=== PATIENT | female | born 1980 | race Caucasian/White ===

== ENCOUNTER 2025-02-18 06:01 | Emergency (ER) | payer BC ==
[2025-02-18 06:13] VITALS: BP 137/90; PULSE 95; RESP 18; TEMP 98.1; BMI 29.5
[2025-02-18] MEDS ORDERED: ONDANSETRON 4 MG/2 ML VIAL ONE (06:23)
[2025-02-18] MEDS: ONDANSETRON 4 MG/2 ML VIAL IVPB ONE (06:46)
[2025-02-18] MEDS: SODIUM CHLORIDE 1,000 ML IV ONE (06:46)
[2025-02-18] MEDS: SODIUM CHLORIDE 1,000 ML IV SCH (06:46)
[2025-02-18 08:32] LABS: ABSOLUTE IMMATURE GRANULOCYTES 0.02 x10^3/uL (0.0-0.031); BASOPHILS # 0.01 x10^3/uL (0.01-0.08); EOSINOPHIL % 0.1 % (0.7-5.8); EOSINOPHILS # 0.01 x10^3/uL (0.04-0.36); HEMATOCRIT 42.4 % (34.1-44.9); HEMOGLOBIN 14.7 g/dL (11.2-15.7); MCHC 34.7 g/dl (32.2-35.5); MEAN CELL VOLUME 96.1 fl (79.4-94.8); MEAN PLT VOLUME 9.5 fl (9.4-12.3); MONOCYTE # 0.44 x10^3/uL (0.24-0.86); MONOCYTE % 5.1 % (4.7-12.5); PLATELET COUNT 339 x10^3/uL (182-369); RDW 11.3 % (12.2-17.1)
[2025-02-18 09:09] LABS: ALBUMIN 4.3 g/dl (3.4-5.0); ALK PHOS 71 U/L (45-117); ANION GAP 12 mmol/L (4-13); BILIRUBIN,TOTAL 0.8 mg/dl (0.2-1); CALCIUM 9.3 mg/dl (8.5-10.1); CHLORIDE 103 mmol/L (98-107); CO2 24 mmol/L (21-32); CREATININE 0.8 mg/dl (0.6-1.3); GLUCOSE,RANDOM 92 mg/dl (74-106); POTASSIUM 4.2 mmol/L (3.5-5.1); SGOT/AST 20 U/L (15-37); SGPT/ALT 18 U/L (7-52); SODIUM 139 mmol/L (136-145)
== END 2025-02-18 09:39 | disposition home or self-care (01) ==
LOC: FER 06:01
PROC: 3E033GC Introduction of Other Therapeutic Substance into Peripheral Vein, Percutaneous Approach (ICD-10-PCS; principal; 2025-02-18)
PROC: 3E0337Z Introduction of Electrolytic and Water Balance Substance into Peripheral Vein, Percutaneous Approach (ICD-10-PCS; 2025-02-18)
DX: R11.2 Nausea with vomiting, unspecified (principal); R10.13 Epigastric pain; T38.3X5A Adverse effect of insulin and oral hypoglycemic [antidiabetic] drugs, initial encounter
CPT/HCPCS: 36415; 80053; 85025; 99284-25